=== PATIENT | male | born 1965 | race Caucasian/White ===

== ENCOUNTER → 2018-01-30 | Day surgery (SDC) | payer OTHER ==
[~2018-01-30] VITALS: Ht 172.7 cm; Wt 72.6 kg
[~2018-01-30] MED LIST: NEURONTIN300 M1 PO
--- NOTE | 2018-01-30 10:40 | Operative Report ---
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 His symptoms fail despite conservative treatment. He now presents for operative intervention and surgical discectomy. Operative/Procedure Note Note: Patient was taken to the operating room. After appropriate patient identification and surgical timeout, the patient underwent the smooth induction of general endotracheal anesthesia without incident. With the endotracheal tube secured, Giron catheter was sterilely inserted. Patient was given 2 g of IV kefzol in Preoperative Prophylaxis. He Was Carefully Turned to the Prone Position on the Roberto Carlos Frame Taking Care to Ensure That All Pressure Points Were Well-Padded. Lumbar Region the Back Was Strip Shaved in Widely Prepped and Drapedin the Usual Sterile Fashion Using ChloraPrep. A vertical midline skin incision was marked overlying L5-S1 and infiltrated with local anesthetic. A small gauge spinal needle was placed superficially and a localizing x-ray was obtained and confirmed to be the level of L5-S1. Skin incision was made with a 10 blade knife. Dissection was carried down through subcutaneous tissue with the Bovie to the lumbodorsal fascia. Fascia was incised in midline and a subperiosteal dissection of the left lumbar paravertebral muscles was performed with the Bovie exposing underlying spinous processes and lamina of L5 and the sacral alar to the level of the medial facet. Self-retaining retractor was placed. A Carter 4 was placed under the L5 lamina and intraoperative x-ray was obtained and confirmed this to be the correct level of L5-S1. With the correct level verified, we performed a laminotomy of the inferior aspect of L5 using combination the Midas Yefri and Kerrison rongeurs skeletonizing the rostral aspect of the ligamentum flavum. Ligament was gently elevated and resected in a rostral to caudal fashion with Kerrison rongeurs exposing underlying epidural fat and dura of the midline thecal sac. We extended the laminotomy to the rostral aspect the sacrum and skeletonized the 1 pedicle exposing of the left S1 root. Meticulous hemostasis was achieved. We gently mobilized left S1 root to the midline under a Scovel and a firm domelike disc tenting up the S1 root was appreciated. The annulus was coagulated and incised in a rectangular fashion with an 11 blade knife. Discectomy was completed with small straight and angled curettes and pituitary rongeurs until an excellent decompression of the ventral epidural disc herniation was accomplished. Reverse angled curettes were used to reach up under the patulous dome beneath the ventral dura and disc material was worked down into the disc space and removed with a pituitary rongeur. The Essence elevator was passed under the thecal sac. There was some palpable endplate spurs off of both L5 and S1 but no additional soft disc herniation could be appreciated. The S1 root was well decompressed and we could pass a Cecilia out the S1 neuroforamen with ease. The wound was copiously irrigated with sterile normal saline. Meticulous hemostasis is achieved. The wound was copiously irrigated with bacitracin irrigation. The patient was then Valsalva to 35 mmHg with no egress of blood or CSF and wound closure was begun. 1 mL of 40 mg/mL Depo-Medrol was carefully placed over the S1 root. A pledget of thrombin Gelfoam was placed in the interlaminar defect covered by fat graft from the subcutaneous tissue filling the interlaminar defect. The fascia was reapproximated with 0 Vicryl suture. The subcutaneous tissue was copiously irrigated with sterile normal saline with Baci. It was closed in layers with interrupted 2-0 and 3-0 Vicryl suture and the skin was closed with a running 4-0 Vicryl subcuticular stitch. The was clean and dry. Steri-Strips and a sterile occlusive dressing was placed. Patient Was returned to the supine position, extubated and taken to PACU in stable condition. He was noted to be moving all 4 extremities at the completion the case. All sponge, needle, and instrument counts are correct at the completion of the procedure 3. Findings: Firm, domelike disc herniation left, L5-S1 with S1 nerve root dorsal displacement. Discharge Disposition: PACU
--- NOTE | 2018-01-31 08:37 | RADIOLOGY REPORT ---
EXAMINATION: XR LUMBAR SPINE CLINICAL INFORMATION: L5-S1 microdiscectomy in OR. COMPARISON: Lumbar spine film from earlier on the same day. TECHNIQUE: Single lateral view of the lumbar spine labeled #2. FINDINGS: Posterior soft tissue retractors are seen. There is a surgical instrument seen projected posteriorly over the L5-S1 facet joint. Normal alignment of lumbar spine on single view. No significant disc space narrowing. IMPRESSION: Localization of the posterior L5-S1 level.
--- NOTE | 2018-01-31 13:52 | RADIOLOGY REPORT ---
EXAMINATION: XR LUMBAR SPINE CLINICAL INFORMATION: L5-S1 microdiscectomy in OR. COMPARISON: None. TECHNIQUE: A single lateral view of the lumbar spine was obtained. FINDINGS: Pyatt are noted projected over the spinous processes at L4 and L5, at the intervertebral disc levels of L4-L5 and L5-S1. There is straightening of the lumbar lordosis. There are no acute osseous findings. There is mild narrowing of intervertebral disc height at L4-L5 and L5-S1. There appears to be a partially visualized enteric tube superiorly. IMPRESSION: 1. Single lateral view of the lumbar spine with posterior needles at levels as described above.
== END ==
LOC: STS 02:10
DX: M51.27 Other intervertebral disc displacement, lumbosacral region (principal); M54.18 Radiculopathy, sacral and sacrococcygeal region; M51.36 Other intervertebral disc degeneration, lumbar region; M10.9 Gout, unspecified
CPT/HCPCS: 36415; 72020; C9399; J0690; J1030; J1100; J2250; J2405